=== PATIENT | female | born 1995 | race Two or more races ===

== ENCOUNTER 2019-08-29 16:27 | Emergency (ER) | payer OTHER ==
[2019-08-29] MEDS ORDERED: Ketorolac INJ* 30 MG/ML 1 ML VIAL IV ONE (17:24)
[2019-08-29] MEDS ORDERED: Metoclopramide IV* 5 MG/ML 2 ML VIAL IV SLOW PU ONE (17:24)
[2019-08-29] MEDS ORDERED: NS 0.9% 1000 ML** 1,000 ML IV ONE (17:24)
--- NOTE | 2019-08-29 17:42 | ED ---
Headache - HPI Summary HPI Summary: 24 year old F presenting to [facility] complains of HINES since 08/23/19, worse since yesterday. The patient reports that the pain was originally located at the anterior of the head and has since moved towards the right posterior side and radiates to the upper neck. Pain waxes and wanes in intensity. Nausea, lightheadedness, photophobia and sensitivity loud noises were noted as well. Patient denies cough, congestion, fever, and blurry vision. She said she went to Urgent Care yesterday where she was diagnosed with a tension HINES and received Toradol. However, she states it did not help and HINES feels worse now. FMHx of HTN is noted. No FMHX or Hx of migraines reported. The patient rates the pain 8/ 10 in severity. Symptoms aggravated by bright lights and loud sounds. Symptoms alleviated by nothing. - History Of Current Complaint Chief Complaint: EDHeadache Stated Complaint: HEADACHE PER PT Time Seen by Provider: 08/29/19 17:23 Hx Obtained From: Patient Onset/Duration: Started days ago, Still Present, Worse Since - yesterday after Toradol administration at Urgent Care Currently Pain Is: Moderate Timing: Constant - but worse at times, Days Location of Headache: Other: - right posterior side of head and radiates down to neck Aggravating Factor: Bright Lights, Other - loud noises Allevating Factors: Nothing Associated Signs And Symptoms: Nausea, Other (Noted In Comments) - positive- lightheadedness, sensitivity to lights and noises, negative-cough, congestion, fever, and blurry vision - Allergies/Home Medications Allergies/Adverse Reactions: Allergies Allergy/AdvReac Type Severity Reaction Status Date / Time No Known Allergies Allergy Verified 08/29/19 16:49 PMH/Surg Hx/FS Hx/Imm Hx Sensory History: Denies: Hx Legally Blind, Hx Deafness Opthamlomology History: Denies: Hx Legally Blind EENT History: Denies: Hx Deafness Neurological History: Denies: Hx Headaches, Hx Migraine - Surgical History Surgical History: None Infectious Disease History: No Infectious Disease History: Denies: Traveled Outside the [place] in Last 30 Days - Family History Known Family History: Positive: Hypertension Negative: Other - migraine - Social History Occupation: Student Alcohol Use: None Substance Use Type: Reports: None Smoking Status (MU): Never Smoked Tobacco Review of Systems Negative: Fever Positive: Photophobia. Negative: Blurred Vision Positive: Other - Sensitivity to noise. Negative: Nasal Discharge Negative: Cough Positive: Nausea Neurological: Other - lightheadedness Positive: Headache All Other Systems Reviewed And Are Negative: Yes Physical Exam - Summary Physical Exam Summary: Constitutional: Well-developed, Well-nourished, Alert. (-) Distressed Skin: Warm, Dry HENT:Atraumatic; no cervical tenderness, pain at base of occiput Eyes: Conjunctiva normal Neck: Musculoskeletal ROM normal neck. (-) JVD, (-) Stridor, (-) Nuchal rigidity Cardio: Rhythm regular, rate normal, Heart sounds normal; Intact distal pulses; Radial pulses are 2+ and symmetric. (-) Murmur Pulmonary/Chest wall: Effort normal. (-) Respiratory distress, (-) Wheezes, (-) Rales Abd: Soft, (-) tenderness, (-) Distension, (-) Guarding, (-) Rebound Musculoskeletal: (-) Edema Lymph: (-) Cervical adenopathy Neuro: Alert, Oriented x3 Triage Information Reviewed: Yes Vital Signs On Initial Exam: Initial Vitals Temp Pulse Resp BP Pulse Ox 98.9 F 61 16 115/69 98 08/29/19 16:47 08/29/19 16:47 08/29/19 16:47 08/29/19 16:47 08/29/19 16:47 Vital Signs Reviewed: Yes ENT: Positive: Other - positive- pain at base of occiput, negative- no cervical tenderness Procedures - Procedure Summary Procedure Summary: occipital block - 5 cc 1% lidocaine used, approx 2 cm inferior/laterally from inion laterally, placed 2.5 cc lidocaine, patient tolerated well - Sedation Patient Received Moderate/Deep Sedation with Procedure: No Diagnostics - Vital Signs Vital Signs Temp Pulse Resp BP Pulse Ox 08/29/19 16:47 98.9 F 61 16 115/69 98 - Laboratory Lab Statement: Any lab studies that have been ordered have been reviewed, and results considered in the medical decision making process. Re-Evaluation - Re-Evaluation First Eval Re-Evaluation Time: 18:20 Change: Improved Comment: Patient reports improvement of Sx at this time. Would like to go home. Headache Course/Dx - Course Course Of Treatment: 24 y/o F p/w headache. Although does NOT have a history of headache of exactly the same type, pain was not sudden onset/thunderbolt, not worst of life, no meningismus, no neuro deficit on exam, and no personal/ family history of aneurysm, so unlikely ICH. No known/suspected cancer and neuro exam WNL, so unlikely mass lesion. No fever, URI sx, meningismus, or known immunocompromised state to suggest meningitis. Therefore no imaging ordered and no LP performed at this point. Will try symptomatic relief and reassess. - Diagnoses Provider Diagnoses: Headache Discharge ED - Sign-Out/Discharge Documenting (check all that apply): Patient Departure - Discharge Plan Condition: Stable Disposition: HOME Patient Education Materials: Acute Headache (ED) Additional Instructions: You were seen in the emergency department for headache. Please follow up with your primary care doctor in next 2-3 days and return to emergency department for worsening headache, neck pain, fevers, confusion or concerning symptoms. It was a pleasure taking care of you today. - Billing Disposition and Condition Condition: STABLE Disposition: Home - Attestation Statements Document Initiated by Janie: Yes Documenting Scribe: Gelacio Gale Provider For Whom Janie is Documenting (Include Credential): Neema Cabral MD Scribe Attestation: I, Gelacio Gale, scribed for Neema Cabral MD on 08/29/19 at 1830. Scribe Documentation Reviewed: Yes Provider Attestation: The documentation as recorded by the Gelacio ojeda accurately reflects the service I personally performed and the decisions made by me, Neema Cabral MD Status of Scribe Document: Viewed
[2019-08-29] MEDS ORDERED: Lidocaine 1% MPF ** 5 ML VIAL INJ ONE (17:53)
[2019-08-29 19:57] VITALS: BP 126/79
== END 2019-08-29 19:55 | disposition home or self-care (01) ==
LOC: ED 16:27
DX: R51 Headache (principal); R11.0 Nausea; R42 Dizziness and giddiness
CPT/HCPCS: 96374; 96375; 99283; J1885; J2765